=== PATIENT | female | born 1950 | race Caucasian/White ===

== ENCOUNTER 2022-07-09 09:41 | Emergency (ER) | payer MEDICARE, BC, SELFPAY ==
[2022-07-09 09:50] VITALS: BP 145/79; PULSE 75; RESP 12; TEMP 36.1; O2SAT 95; BMI 31.9
--- NOTE | 2022-07-09 10:20 | ED.ABDPAIN ---
HPI - Abdominal Pain General Chief Complaint: Abdominal Pain Stated Complaint: pancreatitis flare up Time Seen by Provider: 07/09/22 10:03 History of Present Illness HPI narrative: 71-year-old woman presenting to the emergency department with complaint of about 3 days of a deep an achy pain in the left mid-upper abdomen. This is typical for her history of pancreatitis she says. I comment on the maybe a little unusual location of pain for pancreatitis and she says that this is where she feels the pain when she gets it. Unclear etiology though does have a history of diabetes. Looks like on my review of records was changed from 1 statin to another thinking that might be related as a more recent intervention. Last flare seems to then in January. Does have a history of cholelithiasis status post cholecystectomy. No fever. Is nauseated. This point anything she is eating or drinking comes up. No hematemesis described. Tried an old oxycodone last night it did not help. Just was unable to sleep last night. Also has a history of incisional hernia and mesh herniorrhaphy following cholecystectomy. Active and Historical Problems Active Problems Medical Problems: MRSA (methicillin resistant Staphylococcus aureus) buttock abscess 09/21/14, leg 01/25/16 Colon polyp COPD (chronic obstructive pulmonary disease) Hx of pancreatitis Tobacco use Hypertension Diabetes mellitus, type II Hyperlipidemia Urticaria Pulmonary nodule Incisional hernia Insomnia Anxiety Vertigo B12 deficiency Pancreatitis Surgical Problems: S/P cholecystectomy S/P cataract extraction open incisional hernia repair with mesh Related Data Previous Rx's Medication Instructions Recorded hydrochlorothiazide 12.5 mg capsule 12.5 mg PO QDAY #90 caps 04/23/22 rosuvastatin 10 mg tablet 10 mg PO QDAY #90 tabs 04/23/22 bupropion HCl 150 mg 24 hr tablet, 150 mg PO DAILY #90 tabs 05/05/22 extended release lisinopril 40 mg tablet 40 mg PO QDAY #90 tabs 05/05/22 paroxetine HCl 20 mg tablet 20 mg PO QPM #90 tabs 05/05/22 insulin NPH-regular 70-30 U-100 34 - 46 unit (0.34 - 0.46 mL) 06/05/22 insulin 100 unit/mL subcutaneous subcut BID #70 mL pen (Novolin 70-30 FlexPen U-100 Insulin) metformin 1,000 mg tablet 1,000 mg PO QDAY #90 tabs 06/08/22 Allergies Allergy/AdvReac Type Severity Reaction Status Date / Time No Known Drug Allergies Allergy Verified 07/09/22 09:57 Review of Systems Status of ROS Reports: 10 or more systems reviewed and unremarkable except as noted in History and below [facility] Social History Smoking Status: Current some day smoker What tobacco products do you use: cigarettes How often do you have a drink containing alcohol: never AUDIT-C Alcohol total score: 0 Non-prescribed substance use: denies use Exam Narrative: Exam Narrative: pleasant. nad. mildly anxious. breathing easily. lungs are clear. cn 2 - 12 intact. moving all extremities without difficulty. mild LE dependent edema skin warm and dry without rash oropharynx sounds a little sticky cardiovacular with regular rate and rhythm abdomen with normal bs. soft. mod tenderness to palp in left mid-upper abd. no peritoneal signs. small bruising in left low mid abd c/w insulin admin Const: Vital Signs, click to edit/add: Vital Signs - 24 hr 07/09/22 09:50 07/09/22 10:54 07/09/22 10:55 Temperature 96.9 F L Pulse Rate [Pulse Oximeter] 75 74 Respiratory Rate 12 14 Blood Pressure [Ri ght Upper Arm] 145/79 H Pulse Oximetry 95 92 90 Oxygen Delivery Me thod Room Air Room Air 07/09/22 12:21 Temperature 96.9 F L Pulse Rate [Pulse Oximeter] 74 Respiratory Rate 14 Blood Pressure [Ri ght Upper Arm] 145/79 H Pulse Oximetry Oxygen Delivery Me thod Documenting provider has reviewed patient's vital signs: yes Course Course Hospital Course: iv fluids, morphine, zofran. Reevaluation(s) Reevaluation #1: feels markedly improved. Vital Signs Vital signs: Initial Vital Signs Temperature 96.9 F L 07/09/22 09:50 Temperature Source Temporal Artery Scan 07/09/22 09:50 Pulse Rate 75 07/09/22 09:50 Pulse Rhythm 07/09/22 09:50 Respiratory Rate 12 07/09/22 09:50 Blood Pressure 145/79 H 07/09/22 09:50 Blood Pressure Mean 101 07/09/22 09:50 Pulse Oximetry 95 07/09/22 09:50 Oxygen Delivery Method 07/09/22 09:50 Vital Signs Temperature 96.9 F L 07/09/22 09:50 Pulse Rate 75 07/09/22 09:50 Respiratory Rate 12 07/09/22 09:50 Blood Pressure 145/79 H 07/09/22 09:50 Pulse Oximetry 95 07/09/22 09:50 Oxygen Delivery Method 07/09/22 09:50 Temperature 96.9 F L 07/09/22 12:21 Pulse Rate 74 07/09/22 12:21 Respiratory Rate 14 07/09/22 12:21 Blood Pressure 145/79 H 07/09/22 12:21 Pulse Oximetry 90 07/09/22 10:55 Oxygen Delivery Method 07/09/22 10:55 MDM - Abdominal Pain MDM Narrative Medical decision making narrative: presentation c/w prior pancreatitis. mild elev of lipase, crp and glucose also elevated. discussed admission vs trial at home. mutually decided that could trial at home. watch blood sugars. ua not obtained before departure. Medical Records Attestation: I reviewed the patient's medical records. Lab Data Attestation: I reviewed the patient's lab results. Labs: Lab Results 07/09/22 07/09/22 Range/Units 10:47 10:47 WBC 9.85 (4.50-11.00) K/uL RBC 3.97 L (4.00-5.20) m/uL Hgb 12.2 (12.0-16.0) gm/dL Hct 36.3 (33.0-51.0) % MCV 91 (80-100) fL MCH 31 (26-34) pg MCHC 34 (32-36) gm/dL RDW Coeff of Shaye 12.9 (11.5-15.5) % Plt Count 249 (140-440) K/uL Neut % (Auto) 83.2 H (42.0-72.0) % Lymph % (Auto) 9.1 L (20-44) % [place] % (Auto) 5.7 (0.0-11.0) % Eos % (Auto) 1.7 (0.0-7.0) % Baso % (Auto) 0.2 (0.0-3.0) % Neut # (Auto) 8.20 H (1.7-7.0) K/uL Lymph # (Auto) 0.90 (0.90-2.90) K/uL [place] # (Auto) 0.60 (0.00-0.90) K/UL Eos # (Auto) 0.17 (0.00-0.50) K/uL Baso # (Auto) 0.02 (0.00-0.30) K/uL Abs Immat Gran (auto) 0.01 (0.00-0.30) K/uL Sodium 135 (135-149) mmol/L Potassium 4.3 (3.6-5.1) mmol/L Chloride 95 L (96-114) mmol/L Carbon Dioxide 29 (20-32) mmol/L BUN 22 (7-30) mg/dL Creatinine 0.8 (0.5-1.5) mg/dL Estimated Creat Clear 51.30 Estimated GFR 78 ml/min Glucose 335 H (60-115) mg/dL Calcium 10.0 (8.4-10.6) mg/dL Total Bilirubin 0.6 (0.1-1.5) mg/dL Direct Bilirubin 0.2 (0.0-0.5) mg/dL AST 19 (12-35) U/L ALT 12 (4-35) U/L Alkaline Phosphatase 70 (40-150) U/L C-Reactive Protein 3.6 H (0.5-1.0) mg/dL Total Protein 8.2 (6.0-8.3) g/dL Albumin 4.6 (3.3-5.0) g/dL Lipase 626 H (23-300) U/L Discharge Plan Discharge Clinical Impression: Pancreatitis, Abdominal pain Patient Disposition: Home w/ Parent or Adult Condition: Improved Additional Instructions: Unfortunately you have been through this before. Focus on hydration. Slow advance of diet over the next 2-3 days. Clear liquids initially, diluted juices, broths and advancing to thicker soups and smoothies. Rice. [place]. Return for uncontrolled pain, associated fever, intractable vomiting. Percocet and Zofran from [facility]. Prescriptions: No Action hydrochlorothiazide 12.5 mg capsule 12.5 mg PO QDAY Qty: 90 3RF rosuvastatin 10 mg tablet 10 mg PO QDAY Qty: 90 3RF lisinopril 40 mg tablet 40 mg PO QDAY Qty: 90 3RF paroxetine HCl 20 mg tablet 20 mg PO QPM Qty: 90 3RF bupropion HCl 150 mg tablet extended release 24 hr 150 mg PO DAILY Qty: 90 3RF Novolin 70-30 FlexPen U-100 100 unit/mL (70-30) insulin pen 34 - 46 unit subcut BID Qty: 70 0RF Rx Instructions: Inject 46 units in the morning and 42 units before supper. Patient gets the vials metformin 1,000 mg tablet 1,000 mg PO QDAY Qty: 90 1RF Follow Up/Referrals: Andre Hoskins MD [Primary Care Provider] - Stand Alone Forms: [employer] Info Instructions
[2022-07-09] MEDS: 0.9 % SODIUM CHLORIDE 1000 ml 1,000 ML IV (10:50)
[2022-07-09] MEDS: KETOROLAC 15 MG/ML inj IVP (10:51)
[2022-07-09] MEDS: MORPHINE 4 MG/ML INJ IVP (10:51)
[2022-07-09 10:54] VITALS: O2SAT 92
[2022-07-09 10:55] VITALS: PULSE 74; RESP 14; O2SAT 90
[2022-07-09 11:11] LABS: Basophils Absolute Auto 0.02 K/uL (0.00-0.30); Basophils Percent Auto 0.2 % (0.0-3.0); Eosinophils Absolute Auto 0.17 K/uL (0.00-0.50); Eosinophils Percent Auto 1.7 % (0.0-7.0); Hematocrit 36.3 % (33.0-51.0); Hemoglobin* 12.2 gm/dL (12.0-16.0); Immature Granulocytes Abs Auto 0.01 K/uL (0.00-0.30); Lymphocytes Percent Auto 9.1 % (20-44); Mean Corpuscular HGB Conc 34 gm/dL (32-36); Mean Corpuscular Hemoglobin 31 pg (26-34); Mean Corpuscular Volume 91 fL (80-100); Monocytes Percent Auto 5.7 % (0.0-11.0); Neutrophils Percent Auto 83.2 % (42.0-72.0); Platelet Count* 249 K/uL (140-440); RDW Coefficient of Variation % 12.9 % (11.5-15.5); Red Blood Count 3.97 m/uL (4.00-5.20); White Blood Count* 9.85 K/uL (4.50-11.00)
[2022-07-09 11:14] LABS: Slide Review Reflex No
[2022-07-09 11:26] LABS: Albumin* 4.6 g/dL (3.3-5.0)
[2022-07-09 11:27] LABS: Potassium* 4.3 mmol/L (3.6-5.1); Sodium* 135 mmol/L (135-149)
[2022-07-09 11:29] LABS: Aspartate Amino Transferase* 19 U/L (12-35); Bilirubin Total* 0.6 mg/dL (0.1-1.5); Blood Urea Nitrogen* 22 mg/dL (7-30); Carbon Dioxide* 29 mmol/L (20-32); Creatinine* 0.8 mg/dL (0.5-1.5); Estimated Glomerular Filt Rate 78 ml/min; Total Protein* 8.2 g/dL (6.0-8.3)
[2022-07-09 11:30] LABS: Glucose* 335 mg/dL (60-115)
[2022-07-09 11:37] LABS: Chloride* 95 mmol/L (96-114)
[2022-07-09 11:44] LABS: Alanine Aminotransferase* 12 U/L (4-35); Alkaline Phosphatase* 70 U/L (40-150); Bilirubin Direct* 0.2 mg/dL (0.0-0.5); C Reactive Protein* 3.6 mg/dL (0.5-1.0); Lipase* 626 U/L (23-300)
[2022-07-09 12:21] VITALS: BP 145/79; PULSE 74; RESP 14; TEMP 36.1
== END 2022-07-09 12:21 | disposition home or self-care (01) ==
PROVIDERS: Emergency Provider Family Medicine; PCP Family Medicine
DX: K85.90 Acute pancreatitis without necrosis or infection, unspecified (principal)
CPT/HCPCS: 36415; 80048; 80076; 81001; 83690; 85025; 86140; 94761; 96361; 96374; 96375; 99284; J1885; J2270; J7030

== ENCOUNTER 2023-07-29 15:19 | Outpatient (CLI) | payer MEDICARE, SELFPAY | END 2023-07-29 15:20 | disposition home or self-care (01) | PROVIDERS: PCP Family Medicine; Visit Provider Family Medicine | DX: E78.5 Hyperlipidemia, unspecified (principal); I10 Essential (primary) hypertension; E13.9 Other specified diabetes mellitus without complications; E53.8 Deficiency of other specified B group vitamins | CPT/HCPCS: 80048; 80061 ==

== ENCOUNTER 2023-08-13 10:37 | Outpatient (CLI) | payer MEDICARE, SELFPAY ==
--- NOTE | 2023-08-13 12:23 | W.ANESCHARGE ---
Anesthesia Charges Start Date/Time Anesthesia Start Date: 08/13/23 Anesthesia Start Time: 11:44 Stop Date/Time Anesthesia Stop Date: 08/13/23 Anesthesia Stop Time: 12:22 Summary Extremes of Age - Over 70 or under 1: MDA
--- NOTE | 2023-08-13 12:25 | W.ANESCHARGE ---
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
== END 2023-08-13 10:38 | disposition home or self-care (01) ==
LOC: OP CLINIC 10:37
PROVIDERS: PCP Family Medicine; Visit Provider Surgery
DX: Z86.010 Personal history of colon polyps (principal); K63.5 Polyp of colon; K62.1 Rectal polyp
CPT/HCPCS: 00811; 45385; 88305; 99100; J2704